=== PATIENT | female | born 1935 | race Caucasian/White ===

== ENCOUNTER → 2017-12-09 05:00 | Outpatient (REF) | payer MEDICARE, OTHER, SELFPAY ==
[2017-12-09 08:42] LABS: Absolute Lymphocyte Count 1.79 X10^3/ul (0.83-4.51); Absolute Neutrophil Count 2.7 X10^3/uL (2.0-7.7); Basophil# 0.06 X10^3/uL; Basophil% 1.1 % (0-1); Hematocrit 29.4 % (37-47); Hemoglobin 8.8 g/dl (12.0-15.0); Lymphocyte # 1.79 X10^3/ul (4.0); Lymphocyte % 31.4 % (19-41); Mean Corp Hgb Conc 29.9 g/gl (32-36); Mean Corpuscular Volume 76.8 fL (81-99); Mean Platelet Vol. 11.6 fl (6.2-12.0); Monocyte# 0.78 X10^3/uL; Monocyte% 13.7 % (0-10); Neutrophil # 2.66 X10^3/uL (2.7-7.7); Neutrophil % 46.6 % (47-70); Platelet Count 276 K/mm3 (150-450); RBC Distribution Width CV 15.7 % (11.6-14.6); RBC Distribution Width SD 42.8 fl (35.1-43.9); Red Blood Count 3.83 M/mm3 (4.2-5.4); White Blood Count 5.7 K/mm3 (4.4-11.0)
[2017-12-09 08:43] LABS: POSITIVE COUNT NO; POSITIVE DIFFERENTIAL NO; POSITIVE MORPHOLOGY NO
[2017-12-09 08:58] LABS: Iron 12 ug/dL (50-170); Iron Binding Capacity,Total 455 ug/dL (250-450); PERCENT IRON SATURATION 2.6 % (15.0-55.0); Thyroid Stim Hormone (TSH) 1.35 uIU/mL (0.358-3.74); Vitamin B12 802 pg/mL (211-911)
== END ==
DX: D64.9 Anemia, unspecified (principal); I10 Essential (primary) hypertension; E78.5 Hyperlipidemia, unspecified; E03.9 Hypothyroidism, unspecified; Z79.899 Other long term (current) drug therapy
CPT/HCPCS: 36415; 82607; 83540; 83550; 84443; 85025

== ENCOUNTER → 2017-12-13 10:40 | Outpatient (REF) | payer MEDICARE, OTHER, SELFPAY | DX: D64.9 Anemia, unspecified (principal) | CPT/HCPCS: 82274 ==

== ENCOUNTER 2017-12-23 09:53 | Inpatient (IN) | payer MEDICARE, OTHER, SELFPAY ==
[2017-12-23] VITALS (9 sets, daily range): BP systolic 107–128; BP diastolic 69–81; PULSE 94–101; RESP 16–20; TEMP 36.6–36.9; O2SAT 95–99; BMI 27.1; BMI 27.2; BMI 26.9
--- NOTE | 2017-12-23 10:24 | ED.VISSUMM ---
- ER Visit Summary Date of Service: 12/23/17 Chief Complaint: Bilateral lower extremity edema with shortness of breath History of Present Illness: The patient is a 82 F past medical history of anemia, hypertension, high cholesterol, restless leg, rheumatoid arthritis and prior DVTs. Currently she is on Coumadin. Reportedly no cardiac history. And no history of renal disease. Patient states for the last week she has had increasing swelling of both lower extremities is progressively gotten worse. She also is complaining of shortness of breath worse supine than upright. She denies any chest pain. She denies any prior history of any cardiac disease or dysrhythmia. She denies any chest pain. States that her primary care physician has been putting her on Lasix which is done nothing for the swelling. Physical Examination: Older female no acute distress. Vital signs are stable. Her pulse ox is 99% on room air. HEENT exam unremarkable. Neck nontender. No JVD. No lymphadenopathy. Lungs diminished in the bases but clear otherwise. Heart tachycardic rate of 101 no murmur appreciated. Abdomen is soft and nontender. Normal bowel sounds no peritoneal signs. She is moving all 4 extremities. Neurovascularly intact. She has 2+ pitting edema in both lower extremities that extends above her knees. It is equal and symmetrical. There are no cords. Neurologically she is awake and alert with no focal motor deficits. Back is nontender. Test Results: CBC showed a white count of 7. Hemoglobin of 9 her most recent another hemoglobin in the computer was 8.8 she runs a chronic anemia. Electrolytes showed a sodium of 129. Normal gap of 10. Normal creatinine. INR was 1.4 which is subtherapeutic she is reportedly on Coumadin. Her troponin level was normal. Her BNP was elevated at 1704. Chest x-ray showed cardiomegaly. Also prominent right paratracheal region. This will need further evaluation she will also likely need an echocardiogram. Emergency Department Course and Treatment: Patient's exam is consistent with bilateral pedal edema from CHF or another cause. She does seem to be somewhat tachycardic also. On repeat exam she is doing well. She has been given OxyIR for pain she has chronic pain issues. I discussed all test results with the patient and her family. The bilateral pedal edema may be from CHF versus other causes. I do not think is from any renal issues given that her BUN and creatinine are unremarkable.. I will speak to the hospitalist about admission. Treatment Plan: Admission Disposition: Admission Impression: Acute, new onset bilateral pedal edema CHF Cardiomegaly Prominent right paratracheal region on chest x-ray will need further evaluation Chronic anemia Hyponatremia This note was generated with [employer] dictation software. It may contain incorrect words, spelling, and punctuation that were not noted in review of the chart prior to signing ED Disposition - Plan for ED Patient: Chief Complaint: Edema Referrals: Town Doctor,Out of [NON-STAFF] -
--- NOTE | 2017-12-23 10:27 | NURSING ---
NO OLD EKGS
[2017-12-23] MEDS: oxyCODONE 5 MG Tablet PO ×2 (11:17→22:32)
[2017-12-23 11:23] LABS: Absolute Lymphocyte Count 0.75 X10^3/ul (0.83-4.51); Absolute Neutrophil Count 5.9 X10^3/uL (2.0-7.7); Basophil# 0.04 X10^3/uL; Basophil% 0.5 % (0-1); Differential Indicated SCAN CRITERIA MET; Eosinophil# 0.03 X10^3/uL; Eosinophils% 0.4 % (0-5); Hematocrit 30.1 % (37-47); Lymphocyte # 0.75 X10^3/ul (4.0); Lymphocyte % 10.1 % (19-41); Mean Corp Hgb Conc 29.9 g/gl (32-36); Mean Corpuscular Volume 73.6 fL (81-99); Mean Platelet Vol. 10.8 fl (6.2-12.0); Monocyte# 0.76 X10^3/uL; Monocyte% 10.2 % (0-10); Neutrophil # 5.87 X10^3/uL (2.7-7.7); Neutrophil % 78.7 % (47-70); POSITIVE COUNT NO; POSITIVE DIFFERENTIAL NO; POSITIVE MORPHOLOGY YES; Platelet Count 250 K/mm3 (150-450); RBC Distribution Width CV 15.4 % (11.6-14.6); RBC Distribution Width SD 41.3 fl (35.1-43.9); Red Blood Count 4.09 M/mm3 (4.2-5.4); White Blood Count 7.5 K/mm3 (4.4-11.0)
[2017-12-23 11:24] LABS: International Normalized Ratio 1.4; Prothrombin Time (Protime)PT. 16.9 SECONDS (11.7-14.9)
[2017-12-23 11:27] LABS: Anion Gap 10 (5-15); BUN 14 mg/dL (7-18); BUN/Creat Ratio 17.6 RATIO (10-20); Calcium,Total 8.9 mg/dL (8.5-10.1); Chloride 92 mmol/L (98-107); Creatinine, Serum 0.79 mg/dL (0.55-1.02); EST Glomerular Filtration Rate 73 mL/min (>60); Est Glom Filt Rate - Afr Amer 89 mL/min (>60); Estimated Creatinine Clearance 32.17 ml/min; Glucose 112 mg/dL (74-106); Potassium 4.1 mmol/L (3.5-5.1); Sodium Level 129 mmol/L (136-145)
[2017-12-23 11:37] LABS: Anisocytosis 2+; Hypochromasia 1+; Microcytosis 1+
[2017-12-23] MEDS: Ondansetron 4 MG/2 ML Vial IV (12:10)
[2017-12-23] MEDS: Morphine 4 MG/ML Syringe IV (12:10)
--- NOTE | 2017-12-23 13:14 | NURSING ---
PCU [facility] EDEMA, RT HILAR PROMINENCE, CHF, ANEMIA
--- NOTE | 2017-12-23 13:23 | PCM.HP.STD ---
<Bladimir Lucas - Last Filed: 12/23/17 13:47> Problem List (1) CHF (congestive heart failure) Status: Acute (2) HTN (hypertension) Status: Chronic (3) HLD (hyperlipidemia) Status: Chronic (4) Hypothyroid Status: Chronic (5) GERD (gastroesophageal reflux disease) Status: Chronic (6) Rheumatoid arthritis Status: Chronic History of Present Illness Date of Admission: 12/23/17 Chief Complaint: BLE edema The patient is a 82 year old F with a hx of htn DVT for which she is on warfarin, RA, HLD, GERD, hiatal hernia, hypothyroid who presents to the ER from Assisted Living with a chief complaint of BLE edema. She has had increased LE edema progressively for the past week. She also has developed some mild SOB, worse laying flat, as well, not requiring O2. She denies CP, pressure, heaviness, tightness, palpitations, dizziness, or LH. She has no cough, fevers or chills. She was placed on oral lasix with no improvement. She does not salt her food but her food is prepared for her and she does not know how much salt is in it. She denies a hx of CHF. In the ER workup included normal temp and WBC, mild hyponatremia, significantly elevated BNP, EKG with sinus tach, and CXR c/w chf. She had an echo with good EF in 2013. [] Past Medical History Past Medical History (Chronic Problems): Chronic Problems HTN (hypertension) (Chronic) HLD (hyperlipidemia) (Chronic) Hypothyroid (Chronic) GERD (gastroesophageal reflux disease) (Chronic) Rheumatoid arthritis (Chronic) Allergies meperidine HCl [From Demerol] Allergy (Verified 12/23/17 09:56) Anaphylaxis aspirin Adverse Reaction (Verified 12/23/17 09:57) Other Penicillins Adverse Reaction (Verified 12/23/17 09:56) Unknown Home Medications: Ambulatory Orders Medication Instructions Recorded Acetaminophen [Tylenol Arthritis] 650 mg PO Q8H PRN PRN 10/26/13 Calcium (Elemental) [Caltrate-600] 600 mg PO DAILY 10/26/13 Cholecalciferol (Vitamin D3) 2,000 unit PO DAILY 10/26/13 [Vitamin D] Epinephrine [Epi Pen] 0.3 mg IM X1 10/26/13 Etanercept [Enbrel] 25 mg SQ MOTH 10/26/13 Hydroxychloroquine [Plaquenil] 200 mg PO BID 10/26/13 Multivit-Min/FA/Lycopene/Lut 1 each PO DAILY 10/26/13 [Centrum Silver Tablet] Pregabalin [Lyrica] 100 mg PO 4X/DAY 10/26/13 Warfarin [Coumadin] 2 mg PO DAILY 10/26/13 Albuterol IH (ProAir) [Proair Hfa] 1 - 2 puff INHALATION Q4H PRN PRN 12/23/17 Biotin 5 mg PO DAILY 12/23/17 Duloxetine HCl [Duloxetine HCl] 60 mg PO DAILY 12/23/17 Folic Acid [Folic Acid] 1 mg PO DAILY 12/23/17 Furosemide [Lasix] 20 mg PO DAILY 12/23/17 Lansoprazole [Lansoprazole] 30 mg PO DAILY 12/23/17 Levothyroxine [Synthroid] 50 mcg PO MOTUWETHFR 12/23/17 Levothyroxine [Synthroid] 75 mcg PO SUSA 12/23/17 Naloxegol Oxalate [Movantik] 12.5 mg PO DAILY 12/23/17 Olmesartan Medoxomil [Benicar] 40 mg PO DAILY 12/23/17 Oxybutynin Chloride [Ditropan Xl] 5 mg PO DAILY 12/23/17 Oxycodone HCl/Acetaminophen 0.5 - 1 tab PO Q4H PRN PRN 12/23/17 [Oxycodone-Acetaminophen 10-325] Potassium Chloride [Klor-Con M20] 20 meq PO DAILY 12/23/17 Pravastatin Sodium [Pravastatin 10 mg PO QHS 12/23/17 Sodium] Psychiatric History: No pertinent psych hx 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 Denies: Chest Pain, Chest Pressure, Chest Tightness, Heaviness, Light Headedness, Palpitations, Syncope Respiratory: Reports: Shortness of Breath, Shortness of breath at rest, Shortness of breath upon exertion. Denies: Cough, Sputum production Gastrointestinal: Denies: Abdominal Pain, Nausea, Vomiting Genitourinary: Denies: Dysuria Musculoskeletal: Denies: Joint Pain, Joint Tenderness Skin: Denies: Rash, Wounds Neurological: Denies: Numbness, Tingling, Focal weakness Psychiatric: Denies: Anxiety, Depression, Homicidal Ideations, Suicidal Ideations Hematologic/ Lymphatic: Denies: Easy Bruising, Easy Bleeding VTE Information - Inpt Only VTE Present on Admission: No VTE Mechan Device Prophylaxis: None VTE Pharm Prophylaxis ordered?: Yes Patient Problems: Active and Suspected Problems CHF (congestive heart failure) (Acute) - Physical Exam General: Alert, Oriented x3, Cooperative HEENT: Atraumatic, PERRLA, EOMI, Normocephalic Neck: Supple, No JVD, Negative Carotid Bruits Lungs: Rales Cardiovascular: No murmurs, Tachycardic Abdomen: Bowel Sounds Present, Soft, Non Tender Extremities: Capillary Refill Less than 3 Seconds, Edema - 2+ pitting edema to knees BLE Skin: No rashes, No breakdown Musculoskeletal: No Tenderness to Palpation of Joints or Extremities Neurological: Cranial nerves II-XII grossly intact Psych/Mental Status: Normal Affect, Appropriate, Alert and oriented to time, place, person, mood and affect Vital Signs Temp Pulse Resp BP Pulse Ox 98 F 100 18 128/81 H 96 12/23/17 09:55 12/23/17 13:03 12/23/17 13:03 12/23/17 13:03 12/23/17 13:03 Oxygen Delivery Method Room Air Weight: 144 lb Body Mass Index (BMI) 27.1 Laboratory Tests Past 24 Hrs 12/23/17 12/23/17 12/23/17 11:00 11:00 11:00 WBC 7.5 RBC 4.09 L Hgb 9.0 L Hct 30.1 L MCV 73.6 L MCH 22.0 L MCHC 29.9 L RDW 15.4 H RDW Differential 41.3 Plt Count 250 MPV 10.8 Immature Gran % (Auto) 0.100 Neut % (Auto) 78.7 H Lymph % (Auto) 10.1 L [place] % (Auto) 10.2 H Eos % (Auto) 0.4 Baso % (Auto) 0.5 Absolute Neuts (auto) 5.9 Absolute Lymphs (auto) 0.75 L Total Counted Not Reportable Hypochromasia 1+ Anisocytosis 2+ Microcytosis 1+ PT 16.9 H INR 1.4 Sodium 129 L Potassium 4.1 Chloride 92 L Carbon Dioxide 27.0 Anion Gap 10 BUN 14 Creatinine 0.79 Estim Creat Clear Calc 32.17 Est GFR (MDRD) Af Amer 89 Est GFR (MDRD) Non-Af 73 BUN/Creatinine Ratio 17.6 Glucose 112 H Calcium 8.9 Troponin I 0.036 B-Natriuretic Peptide 12/23/17 11:00 WBC RBC Hgb Hct MCV MCH MCHC RDW RDW Differential Plt Count MPV Immature Gran % (Auto) Neut % (Auto) Lymph % (Auto) [place] % (Auto) Eos % (Auto) Baso % (Auto) Absolute Neuts (auto) Absolute Lymphs (auto) Total Counted Hypochromasia Anisocytosis Microcytosis PT INR Sodium Potassium Chloride Carbon Dioxide Anion Gap BUN Creatinine Estim Creat Clear Calc Est GFR (MDRD) Af Amer Est GFR (MDRD) Non-Af BUN/Creatinine Ratio Glucose Calcium Troponin I B-Natriuretic Peptide 1704.0 H Assessment/Plan All Active Problems CHF (congestive heart failure) (Acute) 1. Acute CHF type unspecified - no prior hx. Admit to pcu on tele. IV lasix. Rales on exam, significant edema. Add CUONG wraps, fluid/sodium restricted diet. home meds lists cuong and arb. on atenolol. Need to clarify home meds. Renal function stable. EKG sinus tachy. BNP 1700. CXR with cardiomegaly, prominent hilar region, adenopathy - follow up CT in ER. Last echo 2012 with preseved EF. Need new echo. Aerosols prn. Incentive spirometer. Trop neg - cycle. 2. HTN - stable. continue home meds 3. HLD - statin 4. GERD/Hiatal hernia - ppi 5. Hypothyroid - check tsh. Continue synthroid 6. Microcytic anemia - recent iron studies in emd. Start po iron. 7. Mild hyponatremia - probably hypervolemic. trend. 8. Hx DVT - INR subtherapeutic. Trend. Continue warfarin. 9. RA - contineu plaquenil, enbrel, cymbalta, lyrica DVT ppx: warfarin DC planning: ptot, likely will be able to return to [place] This patient was seen by Bladimir Lucas PA-C under the supervision of Doctor Macarena. <Mark Fiore F - Last Filed: 12/23/17 15:39> History of Present Illness The patient is a 82 year old F [] Past Medical History Allergies bee venom protein (honey bee) Allergy (Verified 12/23/17 15:00) Anaphylaxis meperidine HCl [From Demerol] Allergy (Verified 12/23/17 09:56) Anaphylaxis Penicillins Allergy (Verified 12/23/17 14:59) Unknown aspirin Adverse Reaction (Verified 12/23/17 14:59) bad headaches and ringing in my ears NSAIDS (Non-Steroidal Anti-Inflamma Adverse Reaction (Verified 12/23/17 15:00) nausea and I passed out - Physical Exam Vital Signs Temp Pulse Resp BP Pulse Ox 98.3 F 95 20 H 121/74 H 95 12/23/17 14:55 12/23/17 14:55 12/23/17 14:55 12/23/17 14:55 12/23/17 14:55 Oxygen Delivery Method Room Air Weight: 142 lb 12.8 oz Body Mass Index (BMI) 26.9 Laboratory Tests Past 24 Hrs 12/23/17 14:30 Troponin I Pending Assessment/Plan Addendum: Dr. Fiore I personally examined the patient and reviewed the chart. I agree with the above. 82 yo F who lives in assisted living presenting with a few days of increase SOB and leg swelling. No fevers, chills, or chest pain. She denies eating anything very salty recently. She had an echo in 2012 that was normal EF with grade 1 diastolic dysfunction. She is also anemic and she was being seen as an outpatient but did have any therapy initiated yet General: Alert, Oriented x3, Cooperative HEENT: Atraumatic, PERRLA, EOMI, Normocephalic Neck: Supple, No JVD, Lungs: Rales in the bases, no wheezes and good air movement Cardiovascular: No murmurs, Tachycardic Abdomen: Bowel Sounds Present, Soft, Non Tender Extremities: Capillary Refill Less than 3 Seconds, Edema - 1+ pitting edema to knees BLE Skin: No rashes, No breakdown Musculoskeletal: No Tenderness to Palpation of Joints or Extremities Psych/Mental Status: Normal Affect, Appropriate, Alert and oriented to time, place, person, mood and affect 1. SOB/Edema/Iron deficiency anemia/HTN/HLD/H/o dvt - Fluid restrict to 1500 cc daily - Start with lasix IV - Echo pending - Start with iron replacement and vit C b/o her PPI - Continue with her home medications for her HTN/HLD - c.w coumadin and check daily INR - Lovenox SC until coumadin is therapeutic Code Visit Inpatient E&M: 97054 Init Hosp L3
--- NOTE | 2017-12-23 14:24 | CASEMGMT ---
Patient is from [facility]. SW will follow for d/c planning. Cheri GRANDA MSW
[2017-12-23 14:52] LABS: Ferritin 14 ng/mL (8-252); Iron 13 ug/dL (50-170); Iron Binding Capacity,Total 500 ug/dL (250-450); Magnesium 2.1 mg/dL (1.6-2.6); PERCENT IRON SATURATION 2.6 % (15.0-55.0); Thyroid Stim Hormone (TSH) 1.83 uIU/mL (0.358-3.74)
[2017-12-23] MEDS: Pravastatin 20 MG Tablet 10 MG PO (22:32)
[2017-12-23] MEDS: Hydroxychloroquine 200 MG Tablet PO (22:33)
[2017-12-23] MEDS: Pregabalin 50 MG Capsule PO (22:37)
--- NOTE | 2017-12-23 23:52 | NURSING ---
Pts home 75 mcg fentanyl patch removed and wasted in toilet. Witness with Tammi Roach RN
[2017-12-24] VITALS (13 sets, daily range): BP systolic 108–125; BP diastolic 57–81; PULSE 81–96; RESP 14–18; TEMP 36.6–36.9; O2SAT 93–96
[2017-12-24] MEDS: Levothyroxine 50 MCG Tablet PO (05:54)
[2017-12-24] MEDS: oxyCODONE 5 MG Tablet PO ×2 (05:56→11:07)
[2017-12-24 06:09] LABS: International Normalized Ratio 1.3; Prothrombin Time (Protime)PT. 16.4 SECONDS (11.7-14.9)
[2017-12-24 06:27] LABS: Anion Gap 8 (5-15); BUN 12 mg/dL (7-18); BUN/Creat Ratio 18.5 RATIO (10-20); Calcium,Total 8.8 mg/dL (8.5-10.1); Chloride 96 mmol/L (98-107); Cholesterol 86 mg/dL (200); Creatinine, Serum 0.65 mg/dL (0.55-1.02); EST Glomerular Filtration Rate 93 mL/min (>60); Est Glom Filt Rate - Afr Amer 112 mL/min (>60); Estimated Creatinine Clearance 32.17 ml/min; Glucose 84 mg/dL (74-106); High Density Lipoprotein 56 mg/dL; Potassium 4.3 mmol/L (3.5-5.1); Sodium Level 128 mmol/L (136-145); Triglycerides 65 mg/dL; Very Low Density Lipoprotein 13 mg/dL (5-40)
[2017-12-24 06:38] LABS: Absolute Lymphocyte Count 2.24 X10^3/ul (0.83-4.51); Absolute Neutrophil Count 3.6 X10^3/uL (2.0-7.7); Basophil% 1.3 % (0-1); Eosinophil# 0.31 X10^3/uL; Eosinophils% 4.1 % (0-5); Hematocrit 29.8 % (37-47); Hemoglobin 8.9 g/dl (12.0-15.0); Lymphocyte # 2.24 X10^3/ul (4.0); Lymphocyte % 29.7 % (19-41); Mean Corp Hgb Conc 29.9 g/gl (32-36); Mean Corpuscular Hgb 22.1 pg (27.0-32.0); Mean Corpuscular Volume 74.1 fL (81-99); Mean Platelet Vol. 11.1 fl (6.2-12.0); Monocyte# 1.23 X10^3/uL; Monocyte% 16.3 % (0-10); Neutrophil # 3.64 X10^3/uL (2.7-7.7); Neutrophil % 48.5 % (47-70); Platelet Count 251 K/mm3 (150-450); RBC Distribution Width CV 15.3 % (11.6-14.6); RBC Distribution Width SD 41.3 fl (35.1-43.9); Red Blood Count 4.02 M/mm3 (4.2-5.4); White Blood Count 7.5 K/mm3 (4.4-11.0)
[2017-12-24 06:39] LABS: Differential Indicated SCAN CRITERIA MET; POSITIVE COUNT NO; POSITIVE DIFFERENTIAL NO; POSITIVE MORPHOLOGY YES
[2017-12-24] MEDS: Aspirin 81 MG TAB.CHEW PO (07:04)
[2017-12-24] MEDS: Clopidogrel Bisulfate 300 MG Tablet PO (07:04)
[2017-12-24 07:06] LABS: Anisocytosis 1+; Differential Comment SCAN; Hypochromasia 1+; Microcytosis 1+; Polychromasia 1+
[2017-12-24] MEDS: Hydroxychloroquine 200 MG Tablet PO ×2 (09:06→20:48)
[2017-12-24] MEDS: Metoprolol(XL)Succ 25 MG Tablet PO (09:06)
[2017-12-24] MEDS: DULoxetine Hcl 60 MG Capsule PO (09:06)
[2017-12-24] MEDS: Tolterodine Tartrate 2 MG CAP.SA PO (09:06)
[2017-12-24] MEDS: Folic Acid 1 MG Tablet PO (09:06)
[2017-12-24] MEDS: Pantoprazole Sodium 40 MG Tablet PO (09:06)
[2017-12-24] MEDS: Pregabalin 50 MG Capsule PO ×2 (09:06→13:22)
[2017-12-24] MEDS: Losartan Potassium 100 MG Tablet PO (09:07)
[2017-12-24] MEDS: Furosemide 40 MG/4 ML Vial IV (09:07)
[2017-12-24] MEDS: 0.9% NaCl Peripheral Flush Adult/Peds IV ×2 (09:07→14:55)
--- NOTE | 2017-12-24 13:13 | PCM.CONS.C ---
Problem List (1) HTN (hypertension) Status: Chronic (2) HLD (hyperlipidemia) Status: Chronic (3) CHF (congestive heart failure) Status: Acute Reason for Consult Date of Consultation: 12/24/17 Reason for Consultation: Newly discovered CHF, hypertension, hypercholesterolemia History of Present Illness: The patient is a 82 year old F with a history of DVT on Coumadin therapy, rheumatoid arthritis, hypertension, GERD, who lives in a correction facility, admitted yesterday for dyspnea on exertion, shortness of breath, worsening lower extremity edema. She denies any chest pain, angina, denies any previous catheterization. Patient was found to have significant biventricular failure, and has difficulty laying down flat due to a combination of back pain which was treated with a implantation of a spinal stimulator but subsequently caused urinary and bowel incontinence. Patient also complains of right lower quadrant abdominal tenderness, and has difficulty laying down flat due to right lower quadrant pain. Patient underwent a 2D echo with Doppler to workup her lower extremity edema and shortness of breath and was found to have severe global LV dysfunction with an EF around 10-15%, markedly diminished since her last echocardiogram in 2012. That time her EF was found to be normal. In addition, her RVSP increased from 25-54 mmHg consistent with at least moderate pulmonary hypertension. The patient was going to undergo a left heart catheterization this morning but due to CHF and abdominal pain she is unable to lay down flat. The patient was ordered a CT of the abdomen and pelvis with results are still pending. She was given IV diuresis and is slowly improving.] Past Medical History Allergies/Adverse Reactions: Allergies bee venom protein (honey bee) Allergy (Verified 12/23/17 15:00) Anaphylaxis meperidine HCl [From Demerol] Allergy (Verified 12/23/17 09:56) Anaphylaxis Penicillins Allergy (Verified 12/23/17 14:59) Unknown aspirin Adverse Reaction (Verified 12/23/17 14:59) bad headaches and ringing in my ears NSAIDS (Non-Steroidal Anti-Inflamma Adverse Reaction (Verified 12/23/17 15:00) nausea and I passed out Home Medications: Ambulatory Orders Medication Instructions Recorded Acetaminophen [Tylenol Arthritis] 650 mg PO Q8H PRN PRN 10/26/13 Calcium (Elemental) [Caltrate-600] 600 mg PO DAILY 10/26/13 Cholecalciferol (Vitamin D3) 2,000 unit PO DAILY 10/26/13 [Vitamin D] Epinephrine [Epi Pen] 0.3 mg IM X1 10/26/13 Etanercept [Enbrel] 25 mg SQ TUSA 10/26/13 Hydroxychloroquine [Plaquenil] 200 mg PO BID 10/26/13 Multivit-Min/FA/Lycopene/Lut 1 each PO DAILY 10/26/13 [Centrum Silver Tablet] Pregabalin [Lyrica] 100 mg PO 4X/DAY 10/26/13 Warfarin [Coumadin] 2 mg PO DAILY 10/26/13 Albuterol IH (ProAir) [Proair Hfa] 1 - 2 puff INHALATION Q4H PRN PRN 12/23/17 Biotin 5 mg PO DAILY 12/23/17 Duloxetine HCl [Duloxetine HCl] 60 mg PO DAILY 12/23/17 Fentanyl [Fentanyl] 75 mcg TRANSDERM. Q72H 12/23/17 Folic Acid [Folic Acid] 1 mg PO DAILY 12/23/17 Furosemide [Lasix] 20 mg PO DAILY 12/23/17 Lansoprazole [Lansoprazole] 30 mg PO DAILY 12/23/17 Levothyroxine [Synthroid] 50 mcg PO MOTUWETHFR 12/23/17 Levothyroxine [Synthroid] 75 mcg PO SUSA 12/23/17 Naloxegol Oxalate [Movantik] 12.5 mg PO DAILY 12/23/17 Olmesartan Medoxomil [Benicar] 40 mg PO DAILY 12/23/17 Oxybutynin Chloride [Ditropan Xl] 5 mg PO DAILY 12/23/17 Oxycodone HCl/Acetaminophen 0.5 - 1 tab PO Q4H PRN PRN 12/23/17 [Oxycodone-Acetaminophen 10-325] Potassium Chloride [Klor-Con M20] 20 meq PO DAILY 12/23/17 Pravastatin Sodium [Pravastatin 10 mg PO QHS 12/23/17 Sodium] Past Medical History (Chronic Problems): Chronic Problems HTN (hypertension) (Chronic) HLD (hyperlipidemia) (Chronic) Hypothyroid (Chronic) GERD (gastroesophageal reflux disease) (Chronic) Rheumatoid arthritis (Chronic) Psychiatric History: No pertinent psych hx 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 Denies: Chest Discomfort, Palpitations, Lightheadedness, Dizziness, Near Syncope, Syncope Respiratory: Denies: Cough, Sputum Production, Hemoptysis Gastrointestinal: Denies: Hematemesis, Hematochezia, Melena Genitourinary: Denies: Dysuria, Hematuria Skin: Denies: Rash Subjectve: Patient laying in bed at a 45? angle, no acute distress. Objective: Vital Signs Temp Pulse Resp BP Pulse Ox 98.4 F 96 16 125/81 H 95 12/24/17 08:30 12/24/17 11:02 12/24/17 08:30 12/24/17 08:30 12/24/17 08:30 Oxygen Delivery Method Room Air Weight: 142 lb 3.17 oz Body Mass Index (BMI) 26.9 Intake and Output for Last 24 Hours 12/22/17 12/23/17 12/24/17 23:59 23:59 23:59 Intake Total 240 / 240 Output Total 575 / 575 200 / 200 Balance -335 / -335 -200 / -200 General: Awake, Alert, Oriented x 3 HEENT: PERRL, EOMI, Sclera Non Icteric Neck: Supple, Good ROM, No Lymph Node Enlargement Lungs: Rales - Marek Bases Cardiovascular: Regular Rhythm, Normal S1, Normal S2, No Rubs, No Gallops, Positive S4 Murmur Murmur: Grade 2/6, Holosystolic Vascular: No Carotid Bruits, Normal Femoral Pulses, Normal Radial Pulses, Normal Dorsalis Pedal Pulse, Normal Posterior Tibial Pulses Abdomen: Bowel Sounds Present, Soft, Non Tender, No HSM, No Organomegaly Extremities: No Cyanosis, No Clubbing, No edema Neurological: No Focal Motor or Sensory Deficit 12/23/17 14:30: Troponin I 0.054 H 12/23/17 17:25: Troponin I 0.051 H 12/24/17 05:26: WBC 7.5, RBC 4.02 L, Hgb 8.9 L, Hct 29.8 L, MCV 74.1 L, MCH 22.1 L, MCHC 29.9 L, RDW 15.3 H, RDW Differential 41.3, Plt Count 251, MPV 11.1, Immature Gran % (Auto) 0.100, Neut % (Auto) 48.5, Lymph % (Auto) 29.7, [place] % (Auto) 16.3 H, Eos % (Auto) 4.1, Baso % (Auto) 1.3 H, Absolute Neuts (auto) 3.6, Total Counted Not Reportable 12/24/17 05:26: Sodium 128 L, Potassium 4.3, Chloride 96 L, Carbon Dioxide 24.0, Anion Gap 8, BUN 12, Creatinine 0.65, Est GFR (MDRD) Af Amer 112, Est GFR (MDRD) Non-Af 93, BUN/Creatinine Ratio 18.5, Glucose 84, Calcium 8.8, Triglycerides 65, Cholesterol 86, LDL Cholesterol 17, VLDL Cholesterol 13, HDL Cholesterol 56 12/24/17 05:26: PT 16.4 H, INR 1.3 Rhythm: EKG: Normal sinus rhythm with left anterior hemiblock, possible old anteroseptal wall myocardial infarction ECHO: Severe LV dysfunction with an EF of 10-15%, RVSP of 54 mmHg, mild to moderate mitral regurgitation, moderate to severe TR. Stress Test: Cardiac Cath: Pending PCI: CT Surgery: Holter monitor: EPS: PPM: CXR: Chest CT Scan: Assessment/Plan 1. Biventricular failure: The patient presents with progressively worsening biventricular failure, newly discovered severe LV dysfunction, moderate to severe tricuspid regurgitation, and at least moderate pulmonary hypertension with an RVSP of estimated to be 54 mmHg, superimposed upon severe bilateral lower extremity edema. At this point I would recommend IV diuresis with a Bumex drip at 0.5 mg/h, bilateral lower extremity Robel bandage wraps, and proceeding with left heart catheterization tomorrow morning to define her coronary anatomy. Patient will need to be able to lay down at least 30?, as we can support her with a wedge in the [employer]. Would not pursue right heart catheterization at this time given her history of DVT. Her INR is subtherapeutic at 1.3 and would recommend holding Coumadin. DC IV Lasix. In addition would recommend starting afterload reducing agents with Cozaar 100 mg p.o. daily, holding her beta-pedro until she is euvolemic, then starting Coreg 3.125 mg p.o. twice daily. Recommend a 1500 cc fluid restriction, and Robel bandages to her bilateral lower extremities to facilitate venous return. Her TSH is normal, so it is unlikely that she has hypothyroid induced LV dysfunction. Assuming she can lay down she will undergo a left her catheterization tomorrow morning. If the patient has no significant coronary disease she will be deemed as a idiopathic cardiomyopathy. We will repeat her echocardiogram in 3 months time after medical management and cardiac rehab if possible, and if her LV function is still not optimized she may require a prophylactic AICD versus ongoing medical therapy. Recommend keeping her potassium above 4.0 and her magnesium of 2.0. 2. Thank you very much for the opportunity to put dissipate in the cardiac care of your patient. Consultation time took place between 8 AM and 8:30 AM. Code Visit Inpatient E&M: 71170 Init Hosp L2
[2017-12-24] MEDS: Enoxaparin 40 MG/0.4 ML Syringe SC (14:09)
[2017-12-24] MEDS: HYDROcodone Bitartrate/Apap 5/325 Tablet PO ×2 (14:51→20:48)
[2017-12-24] MEDS: Bumetanide 25 MG in CONTAINER,EMPTY 1 BAG CONT INF (14:51)
[2017-12-24] MEDS: Gabapentin 100 MG Capsule 200 MG PO (16:29)
--- NOTE | 2017-12-24 17:28 | PCM.PN.HOSP ---
Patient Problems: Active and Suspected Problems CHF (congestive heart failure) (Acute) Subjective: f/u fo0r CHF exacerbation patient seen and examined Complains of right hip, back and leg pain which is chronic Vitals/I&O's: Vital Signs Temp Pulse Resp BP Pulse Ox 98.2 F 82 16 108/58 L 96 12/24/17 14:15 12/24/17 14:59 12/24/17 14:15 12/24/17 14:15 12/24/17 14:15 Oxygen Delivery Method Room Air Weight: 64.5 kg Body Mass Index (BMI) 26.9 Intake and Output for Last 24 Hours 12/22/17 12/23/17 12/24/17 23:59 23:59 23:59 Intake Total 240 / 240 609 / 609 Output Total 575 / 575 650 / 650 Balance -335 / -335 -41 / -41 General: Alert, Oriented x3, Cooperative, - - in painful distress Neck: JVD, Right Lungs: Rales, - - bilateral coarse crackles id and lower zones bilaterally Cardiovascular: Regular rate, Normal S1, Normal S2 Abdomen: Bowel Sounds Present, Soft, Non Tender, Non-Distended Extremities: Edema - 2 + edema Neurological: Cranial nerves II-XII grossly intact Psych/Mental Status: Normal Affect, Appropriate Laboratory Results 12/23/17 17:25: Troponin I 0.051 H 12/24/17 05:26: WBC 7.5, RBC 4.02 L, Hgb 8.9 L, Hct 29.8 L, MCV 74.1 L, MCH 22.1 L, MCHC 29.9 L, RDW 15.3 H, RDW Differential 41.3, Plt Count 251, MPV 11.1, Immature Gran % (Auto) 0.100, Neut % (Auto) 48.5, Lymph % (Auto) 29.7, [place] % (Auto) 16.3 H, Eos % (Auto) 4.1, Baso % (Auto) 1.3 H, Absolute Neuts (auto) 3.6, Absolute Lymphs (auto) 2.24, Total Counted Not Reportable, Differential Comment SCAN, Polychromasia 1+, Hypochromasia 1+, Anisocytosis 1+, Microcytosis 1+ 12/24/17 05:26: Sodium 128 L, Potassium 4.3, Chloride 96 L, Carbon Dioxide 24.0, Anion Gap 8, BUN 12, Creatinine 0.65, Estim Creat Clear Calc 32.17, Est GFR (MDRD) Af Amer 112, Est GFR (MDRD) Non-Af 93, BUN/Creatinine Ratio 18.5, Glucose 84, Calcium 8.8, Triglycerides 65, Cholesterol 86, LDL Cholesterol 17, VLDL Cholesterol 13, HDL Cholesterol 56 12/24/17 05:26: PT 16.4 H, INR 1.3 Current Medications Hydrocodone Bitart/Acetaminophen ([place] 5mg-325mg) 2 tablet PO Q6H [facility] Last Admin: 12/24/17 14:51 Dose: 2 tablet Albuterol Sulfate (Ventolin Aerosols) 2.5 mg INHALATION Q4H PRN PRN Reason: SOB &/OR WHEEZING Diphenhydramine HCl (Benadryl) 50 mg PO X1 ONE Stop: 12/25/17 07:01 Duloxetine HCl (Cymbalta) 60 mg PO DAILY [facility] Last Admin: 12/24/17 09:06 Dose: 60 mg Enoxaparin Sodium (Lovenox) 40 mg SC DAILY@1000 [facility] Last Admin: 12/24/17 14:09 Dose: 40 mg Etanercept (Enbrel) 25 mg SQ TuSa@1000 [facility] Fentanyl (Duragesic Patch) 75 mcg TRANSDERM. Q72H [facility] Last Admin: 12/23/17 23:41 Dose: 75 mcg Folic Acid (Folic Acid) 1 mg PO DAILYCM [facility] Last Admin: 12/24/17 09:06 Dose: 1 mg Gabapentin (Neurontin) 200 mg PO TIDCM [facility] Last Admin: 12/24/17 16:29 Dose: 200 mg Hydroxychloroquine Sulfate (Plaquenil) 200 mg PO BID [facility] Last Admin: 12/24/17 09:06 Dose: 200 mg Sodium Chloride () 250 mls @ 15 mls/hr IV .[id number] PRN PRN Reason: SALINE FLUSH Iron Sucrose 300 mg/ Sodium (Chloride) 265 mls @ 177 mls/hr IV DAILY [facility] Last Admin: 12/24/17 11:07 Dose: 177 mls/hr Sodium Chloride () 1,000 mls @ 15 mls/hr IV .Q48H [facility] PRN Reason: KVO Bumetanide 25 mg/ (Miscellaneous Information) 100 mls @ 2 mls/hr CONT INF .Q50H [facility] PRN Reason: 0.5 MG/HR Last Admin: 12/24/17 14:51 Dose: 2 mls/hr Levothyroxine Sodium (Synthroid) 50 mcg PO MoTuWeThFr@0600 [facility] Last Admin: 12/24/17 05:54 Dose: 50 mcg Levothyroxine Sodium (Synthroid) 75 mcg PO SuSa@0600 [facility] Losartan Potassium (Cozaar) 100 mg PO DAILY [facility] Last Admin: 12/24/17 09:07 Dose: 100 mg Magnesium Hydroxide (Milk Of Magnesia) 30 ml PO DAILY PRN PRN Reason: Constipation Non-Formulary Medication (Naloxegol Oxalate [Movantik]) 12.5 mg PO DAILY [facility] Ondansetron HCl (Zofran) 4 mg IV Q8H PRN PRN PRN Reason: Nausea Pantoprazole Sodium (Protonix) 40 mg PO DAILY [facility] Last Admin: 12/24/17 09:06 Dose: 40 mg Potassium Chloride (K-Dur) [facility] Pravastatin Sodium (Pravachol) 10 mg PO QHS [facility] Last Admin: 12/23/17 22:32 Dose: 10 mg Sodium Chloride () 5 - 30 ml IV UD PRN PRN Reason: SALINE FLUSH Last Admin: 12/24/17 14:55 Dose: 10 ml Tolterodine Tartrate (Detrol La) 2 mg PO DAILY [facility] Last Admin: 12/24/17 09:06 Dose: 2 mg Medical Necessity - Tobacco Use Smoking Status: Never smoker Assessment/Plan All Active Problems CHF (congestive heart failure) (Acute) 1. Acute on chronic CHF. EF was normal just a few years ago. Suspect ischemic heart disease and patient appears to b e planned for a left heart cath. I think a right heart cath would be informative as well 2. HTN - stable. Continue home meds 3. HLD - statin 4. GERD/Hiatal hernia - ppi 5. Hypothyroid - check tsh. Continue synthroid 6. Microcytic anemia/Iron deficiency anemia. Will start Venofer IV x 3. Has had EGD and colonoscopy [facility] in the last 1 year and negative for pathology. Suspect reduced absorption. Will screen for celiac sprue 7. Mild hyponatremia - probably hypervolemic. Will monitor 8. Hx DVT - INR subtherapeutic. Trend. Continue warfarin. 9. RA - continue Plaquenil, Enbrel, Cymbalta, Lyrica Code Visit Inpatient E&M: 71643 Subs Hosp L3
[2017-12-24] MEDS: Pravastatin 20 MG Tablet 10 MG PO (20:48)
[2017-12-25] VITALS (19 sets, daily range): BP systolic 107–128; BP diastolic 53–71; PULSE 51–99; RESP 14–16; TEMP 36.3–36.8; O2SAT 94–98
[2017-12-25 00:07] LABS: Bacteria 0 SEEN /hpf (None Seen); Mucous, Urine 0 SEEN /hpf (<or=2+); Red Blood Cells-Urine 0 SEEN /hpf (0-5); Squamous Epithelial Cells - UA 0 SEEN /hpf (5-10); White Blood Cells 0 SEEN /hpf (0-5)
[2017-12-25 00:18] LABS: Color, Urine Straw (Yellow); Glucose, Dipstick Normal (Normal); Ketone-Dipstick Negative (Negative); Leukocyte Esterase-Dipstick Negative /ul (Negative); Nitrite-Dipstick Negative (Negative); Occult Blood-Urine Negative /ul (Negative); Protein-Dipstick Negative (Negative); Urine Bilirubin Dipstick Negative (Negative); Urine Clarity Clear (Clear); Urine Urobilinogen Normal (Normal); Urine pH 6.5 (5.0 - 8.0)
[2017-12-25] MEDS: HYDROcodone Bitartrate/Apap 5/325 Tablet PO ×4 (02:56→20:15)
[2017-12-25 05:19] LABS: Absolute Lymphocyte Count 1.31 X10^3/ul (0.83-4.51); Absolute Neutrophil Count 3.1 X10^3/uL (2.0-7.7); Basophil# 0.13 X10^3/uL; Basophil% 2.2 % (0-1); Eosinophil# 0.43 X10^3/uL; Eosinophils% 7.2 % (0-5); Hematocrit 29.3 % (37-47); Hemoglobin 8.8 g/dl (12.0-15.0); Lymphocyte # 1.31 X10^3/ul (4.0); Lymphocyte % 21.8 % (19-41); Mean Corpuscular Hgb 22.2 pg (27.0-32.0); Mean Platelet Vol. 11.5 fl (6.2-12.0); Monocyte# 0.99 X10^3/uL; Monocyte% 16.5 % (0-10); Neutrophil # 3.14 X10^3/uL (2.7-7.7); Neutrophil % 52.1 % (47-70); Platelet Count 257 K/mm3 (150-450); RBC Distribution Width CV 15.7 % (11.6-14.6); RBC Distribution Width SD 40.9 fl (35.1-43.9); Red Blood Count 3.96 M/mm3 (4.2-5.4)
[2017-12-25 05:21] LABS: Differential Indicated SCAN CRITERIA MET; POSITIVE COUNT NO; POSITIVE DIFFERENTIAL NO; POSITIVE MORPHOLOGY YES
[2017-12-25 05:22] LABS: International Normalized Ratio 1.3; Prothrombin Time (Protime)PT. 16.3 SECONDS (11.7-14.9)
[2017-12-25 05:23] LABS: Partial Thromboplast Time 39.8 Seconds (24.1-36.2)
[2017-12-25 05:24] LABS: Anion Gap 10 (5-15); BUN 10 mg/dL (7-18); BUN/Creat Ratio 14.3 RATIO (10-20); Calcium,Total 8.3 mg/dL (8.5-10.1); Chloride 94 mmol/L (98-107); EST Glomerular Filtration Rate 85 mL/min (>60); Est Glom Filt Rate - Afr Amer 103 mL/min (>60); Estimated Creatinine Clearance 32.17 ml/min; Glucose 88 mg/dL (74-106); Potassium 3.2 mmol/L (3.5-5.1); Sodium Level 138 mmol/L (136-145)
[2017-12-25 06:51] LABS: Anisocytosis 1+; Differential Comment SCAN; Hypochromasia 1+; Microcytosis 1+; Polychromasia 1+
[2017-12-25] MEDS: Levothyroxine 50 MCG Tablet PO (07:37)
[2017-12-25] MEDS: Clopidogrel Bisulfate 75 MG Tablet PO (07:38)
[2017-12-25] MEDS: 0.9% Normal Saline 1,000 ML 15 ML IV (07:51)
[2017-12-25] MEDS: Aspirin 81 MG TAB.CHEW PO (07:51)
[2017-12-25] MEDS: Losartan Potassium 100 MG Tablet PO (07:52)
[2017-12-25] MEDS: Gabapentin 100 MG Capsule 200 MG PO ×3 (07:52→16:44)
[2017-12-25] MEDS: Folic Acid 1 MG Tablet PO (07:54)
[2017-12-25] MEDS: Tolterodine Tartrate 2 MG CAP.SA PO (09:23)
[2017-12-25] MEDS: DULoxetine Hcl 60 MG Capsule PO (09:23)
[2017-12-25] MEDS: Pantoprazole Sodium 40 MG Tablet PO (09:24)
[2017-12-25] MEDS: 0.9% NaCl Peripheral Flush Adult/Peds IV (10:42)
[2017-12-25] MEDS: DiphenhydrAMINE 25 MG Capsule 50 MG PO (11:10)
[2017-12-25] MEDS: Hydroxychloroquine 200 MG Tablet PO ×2 (12:33→21:47)
--- NOTE | 2017-12-25 13:39 | CASEMGMT ---
JAIME met with patient and her daughter. Staff from [facility] was also in the room visiting. Patient likely not ready for d/c today. Family said they would transport patient when ready. [facility] staff present is aware patient may come back over the weekend. JAIME will continue to follow to make sure patient is okay for d/c to [facility]. Plan: At this time the plan is back to [facility]ATT[facility]. Cheri GRANDA MSW
--- NOTE | 2017-12-25 13:56 | CASEMGMT ---
JAIME faxed updates to John. Cheri GRANDA CONTENT EDITOR
--- NOTE | 2017-12-25 14:10 | PCM.PN.HOSP ---
Patient Problems: Active and Suspected Problems CHF (congestive heart failure) (Acute) Subjective: F/u for acute CHF Patient seen and examined States breathing is better and pain in legs better as wel Vitals/I&O's: Vital Signs Temp Pulse Resp BP Pulse Ox 98.1 F 54 L 16 122/71 H 94 12/25/17 13:39 12/25/17 13:39 12/25/17 13:39 12/25/17 13:39 12/25/17 13:39 Oxygen Flow Rate (L/min) 2 Oxygen Delivery Method Room Air Weight: 61.5 kg Body Mass Index (BMI) 26.9 Intake and Output for Last 24 Hours 12/23/17 12/24/17 12/25/17 23:59 23:59 23:59 Intake Total 240 / 240 1783.3 / 1783.3 435 / 435 Output Total 575 / 575 1800 / 1800 300 / 300 Balance -335 / -335 -16.7 / -16.7 135 / 135 General: Alert, Oriented x3, Cooperative, - - less painful distress compared to yesterday HEENT: Atraumatic Oral: Moist Mucosa Neck: Supple, JVD, Right Lungs: - - less labored Abdomen: - - protruberant but MWR Extremities: Edema, - - CUONG wraps present still Skin: Skin Tear Neurological: Neuro grossly intact Psych/Mental Status: Normal Affect, Appropriate Microbiology Past 72 Hours 12/24/17 19:01 Stool Stool Occult Blood (ANEL) - Final Laboratory Results 12/24/17 23:55: Urine Color Straw, Urine Clarity Clear, Urine pH 6.5, Ur Specific [place] 1.010, Urine Protein Negative, Urine Glucose (UA) Normal, Urine Ketones Negative, Urine Occult Blood Negative, Urine Nitrite Negative, Urine Bilirubin Negative, Urine Urobilinogen Normal, Ur Leukocyte Esterase Negative, Urine RBC 0 SEEN, Urine WBC 0 SEEN, Ur Squamous Epith Cells 0 SEEN, Urine Bacteria 0 SEEN, Urine Mucus 0 SEEN 12/25/17 04:35: WBC 6.0, RBC 3.96 L, Hgb 8.8 L, Hct 29.3 L, MCV 74.0 L, MCH 22.2 L, MCHC 30.0 L, RDW 15.7 H, RDW Differential 40.9, Plt Count 257, MPV 11.5, Immature Gran % (Auto) 0.200, Neut % (Auto) 52.1, Lymph % (Auto) 21.8, [place] % (Auto) 16.5 H, Eos % (Auto) 7.2 H, Baso % (Auto) 2.2 H, Absolute Neuts (auto) 3.1, Absolute Lymphs (auto) 1.31, Total Counted Not Reportable, Differential Comment SCAN, Polychromasia 1+, Hypochromasia 1+, Anisocytosis 1+, Microcytosis 1+ 12/25/17 04:35: PT 16.3 H, INR 1.3, APTT 39.8 H 12/25/17 04:35: Sodium 138, Potassium 3.2 L, Chloride 94 L, Carbon Dioxide 34.0 H, Anion Gap 10, BUN 10, Creatinine 0.70, Estim Creat Clear Calc 32.17, Est GFR (MDRD) Af Amer 103, Est GFR (MDRD) Non-Af 85, BUN/Creatinine Ratio 14.3, Glucose 88, Calcium 8.3 L Current Medications Hydrocodone Bitart/Acetaminophen ([place] 5mg-325mg) 2 tablet PO Q6H [facility] Last Admin: 12/25/17 07:56 Dose: 2 tablet Albuterol Sulfate (Ventolin Aerosols) 2.5 mg INHALATION Q4H PRN PRN Reason: SOB &/OR WHEEZING Carvedilol (Coreg) 3.125 mg PO BID [facility] Duloxetine HCl (Cymbalta) 60 mg PO DAILY [facility] Last Admin: 12/25/17 09:23 Dose: 60 mg Etanercept (Enbrel) 25 mg SQ TuSa@1000 [facility] Fentanyl (Duragesic Patch) 75 mcg TRANSDERM. Q72H [facility] Last Admin: 12/23/17 23:41 Dose: 75 mcg Folic Acid (Folic Acid) 1 mg PO DAILYCM [facility] Last Admin: 12/25/17 07:54 Dose: 1 mg Furosemide (Lasix) 40 mg PO BID@1000,1800 [facility] Gabapentin (Neurontin) 200 mg PO TIDCM [facility] Last Admin: 12/25/17 12:34 Dose: 200 mg Heparin Sodium (Beef Lung) (Heparin 500 Unit/5 Ml (100/Ml)) 500 unit IV UD PRN PRN Reason: HEPARIN FLUSH Hydroxychloroquine Sulfate (Plaquenil) 200 mg PO BID [facility] Last Admin: 12/25/17 12:33 Dose: 200 mg Iron Sucrose 300 mg/ Sodium (Chloride) 265 mls @ 177 mls/hr IV DAILY [facility] Last Admin: 12/25/17 13:45 Dose: 177 mls/hr Sodium Chloride () 1,000 mls @ 15 mls/hr IV .Q48H [facility] PRN Reason: KVO Last Admin: 12/25/17 07:51 Dose: 15 mls/hr Bumetanide 25 mg/ (Miscellaneous Information) 100 mls @ 2 mls/hr CONT INF .Q50H [facility] PRN Reason: 0.5 MG/HR Last Admin: 12/24/17 14:51 Dose: 2 mls/hr Labetalol HCl (Trandate) 5 mg IV X1 PRN PRN Reason: SBP > 160 prior to sheath pull Stop: 12/27/17 11:51 Levothyroxine Sodium (Synthroid) 50 mcg PO MoTuWeThFr@0600 [facility] Last Admin: 12/25/17 07:37 Dose: 50 mcg Levothyroxine Sodium (Synthroid) 75 mcg PO SuSa@0600 [facility] Losartan Potassium (Cozaar) 100 mg PO DAILY [facility] Last Admin: 12/25/17 07:52 Dose: 100 mg Magnesium Hydroxide (Milk Of Magnesia) 30 ml PO DAILY PRN PRN Reason: Constipation Non-Formulary Medication (Naloxegol Oxalate [Movantik]) 12.5 mg PO DAILY [facility] Last Admin: 12/25/17 12:32 Dose: 12.5 mg Ondansetron HCl (Zofran) 4 mg IV Q8H PRN PRN PRN Reason: Nausea Pantoprazole Sodium (Protonix) 40 mg PO DAILY [facility] Last Admin: 12/25/17 09:24 Dose: 40 mg Potassium Chloride (K-Dur) 40 meq PO TIDCM [facility] Last Admin: 12/25/17 12:34 Dose: 40 meq Potassium Chloride (K-Dur) [facility] Pravastatin Sodium (Pravachol) 10 mg PO QHS [facility] Last Admin: 12/24/17 20:48 Dose: 10 mg Sodium Chloride () 5 - 30 ml IV UD PRN PRN Reason: SALINE FLUSH Last Admin: 12/25/17 10:42 Dose: 10 ml Spironolactone (Aldactone) 25 mg PO DAILY [facility] Tolterodine Tartrate (Detrol La) 2 mg PO DAILY [facility] Last Admin: 12/25/17 09:23 Dose: 2 mg Medical Necessity - Tobacco Use Smoking Status: Never smoker Assessment/Plan All Active Problems CHF (congestive heart failure) (Acute) 1. Acute on chronic CHF. EF was normal just a few years ago but now markedly reduced to about 20%. Ischemic heart disease suspected as the cause, however left heart cath showed no significant CAD. D/w Dr. Bright findings during the procedure. Essentially non ischemic cardiomyopathy. Bumex drip to be discontinued and patient restarted on IV Lasix. Appreciate input from cardiology immensely. Anticipate another 1-2 day hospital stay. 2. HTN - fairly well controlled. CUONG/ARB to optimize afterload reduction per cardiology. 3. HLD - statin. 4. GERD/Hiatal hernia - ppi. 5. Hypothyroid - clinically euthyroid. Continue Synthroid. 6. Microcytic anemia/Iron deficiency anemia. Started on Venofer IV x 3. Has had EGD and colonoscopy both in the last 1 year and negative for pathology. Suspect reduced absorption. Will screen for celiac sprue with antigliadin antibodies. To continue to f/u with GI and hematology as outpatient. 7. Mild hyponatremia - probably hypervolemic. Now normalized. Will continue to monitor lytes while on diuretics. 8. H/o DVT - INR subtherapeutic. Trend. Continue warfarin. Will have to increase dose. 9. RA - continue Plaquenil, Enbrel, Cymbalta, Lyrica. 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 10. Spinal stenosis with severe sciatica. Failed implant of spinal stimulator. Started on scheduled [place] and Neurontin and states pain is better. Will continue to see how much more comfortable we can get patient and improve her overall quality of life. Code Visit Inpatient E&M: 73266 Subs Hosp L3
[2017-12-25] MEDS: Furosemide 40 MG Tablet PO (18:02)
[2017-12-25] MEDS: Pravastatin 20 MG Tablet 10 MG PO (21:47)
[2017-12-25] MEDS: Carvedilol 3.125 MG TABLET PO (21:48)
[2017-12-26] VITALS (11 sets, daily range): BP systolic 94–110; BP diastolic 53–70; PULSE 86–99; RESP 14–16; TEMP 36.4–36.8; O2SAT 93–99
[2017-12-26] MEDS: HYDROcodone Bitartrate/Apap 5/325 Tablet PO ×4 (03:19→21:06)
[2017-12-26] MEDS: Levothyroxine 75 MCG Tablet PO (05:59)
[2017-12-26 06:32] LABS: Anion Gap 10 (5-15); BUN 11 mg/dL (7-18); BUN/Creat Ratio 13.8 RATIO (10-20); Calcium,Total 8.8 mg/dL (8.5-10.1); Chloride 96 mmol/L (98-107); EST Glomerular Filtration Rate 73 mL/min (>60); Est Glom Filt Rate - Afr Amer 88 mL/min (>60); Estimated Creatinine Clearance 40.21 ml/min; Glucose 86 mg/dL (74-106); Potassium 3.9 mmol/L (3.5-5.1); Sodium Level 137 mmol/L (136-145)
[2017-12-26] MEDS: Gabapentin 100 MG Capsule 200 MG PO (08:18)
[2017-12-26] MEDS: Folic Acid 1 MG Tablet PO (08:18)
[2017-12-26] MEDS: Carvedilol 3.125 MG TABLET PO ×2 (09:31→21:16)
[2017-12-26] MEDS: Spironolactone 25 MG Tablet PO (09:31)
[2017-12-26] MEDS: Losartan Potassium 100 MG Tablet PO (09:31)
[2017-12-26] MEDS: DULoxetine Hcl 60 MG Capsule PO (09:32)
[2017-12-26] MEDS: Pantoprazole Sodium 40 MG Tablet PO (09:32)
[2017-12-26] MEDS: Furosemide 40 MG Tablet PO ×2 (09:32→17:04)
[2017-12-26] MEDS: Hydroxychloroquine 200 MG Tablet PO ×2 (09:32→21:10)
[2017-12-26] MEDS: Tolterodine Tartrate 2 MG CAP.SA PO (09:32)
[2017-12-26] MEDS: 0.9% NaCl Peripheral Flush Adult/Peds IV ×2 (09:36→12:40)
--- NOTE | 2017-12-26 10:35 | PCM.PN.CARD ---
Subjectve: Feels better today, but still fatigued. Objective: Vital Signs Temp Pulse Resp BP Pulse Ox 98.0 F 99 14 103/62 99 12/26/17 09:27 12/26/17 09:27 12/26/17 09:27 12/26/17 09:27 12/26/17 09:27 Oxygen Flow Rate (L/min) 2 Oxygen Delivery Method Room Air Weight: 58.1 kg Body Mass Index (BMI) 26.9 Intake and Output for Last 24 Hours 12/24/17 12/25/17 12/26/17 23:59 23:59 23:59 Intake Total 1783.3 / 1783.3 883 / 883 480 / 480 Output Total 1800 / 1800 300 / 300 Balance -16.7 / -16.7 583 / 583 480 / 480 A & O X 3, in NAD. Lungs: scattered fine bibasilar crackles. CV: RRR, no m, g, rub. Ext: No edema. 12/26/17 05:32: Sodium 137, Potassium 3.9, Chloride 96 L, Carbon Dioxide 31.0, Anion Gap 10, BUN 11, Creatinine 0.80, Est GFR (MDRD) Af Amer 88, Est GFR (MDRD) Non-Af 73, BUN/Creatinine Ratio 13.8, Glucose 86, Calcium 8.8 Rhythm: EKG: ECHO: Stress Test: Cardiac Cath: PCI: CT Surgery: Holter monitor: EPS: PPM: CXR: Chest CT Scan: Medical Necessity - Tobacco Use Smoking Status: Never smoker Assessment/Plan CHF, acute on chronic, class 2 ?, nonischemic CMP, severe systolic dysfunction, angiographically normal coronaries Diuresis has reduced the wt by 14 lbs since admission. Anemia, IV Iron infusion in progress. Suggest continuation of current CHF , medical therapy. Home per attending, FU with the fiberglasser in 2-3 weeks.
[2017-12-26] MEDS: Gabapentin 300 MG Capsule PO ×2 (11:25→17:04)
[2017-12-26] MEDS: Ondansetron 4 MG/2 ML Vial IV (12:40)
[2017-12-26] MEDS: Neomycin/Polymyxin/Dexameth OINT 3.5GM OPTH.TUBE 1 APPLIC OPHTHALMIC ×2 (14:27→21:10)
--- NOTE | 2017-12-26 15:46 | PCM.PN.HOSP ---
Patient Problems: Active and Suspected Problems CHF (congestive heart failure) (Acute) Subjective: f/u for CHF exacerbation Patient seen and examined Feeling better today. Less SOB, edema in legs is less pain better Vitals/I&O's: Vital Signs Temp Pulse Resp BP Pulse Ox 98.3 F 98 16 94/61 95 12/26/17 15:25 12/26/17 15:25 12/26/17 15:25 12/26/17 15:25 12/26/17 15:25 Oxygen Flow Rate (L/min) 2 Oxygen Delivery Method Room Air Weight: 58.1 kg Body Mass Index (BMI) 26.9 Intake and Output for Last 24 Hours 12/24/17 12/25/17 12/26/17 23:59 23:59 23:59 Intake Total 1783.3 / 1783.3 883 / 883 1436 / 1436 Output Total 1800 / 1800 300 / 300 Balance -16.7 / -16.7 583 / 583 1436 / 1436 General: Alert, Oriented x3, Cooperative, No apparent distress HEENT: Atraumatic Oral: Moist Mucosa Neck: Supple, JVD, Right - mildly elevated Lungs: Rales - fine crsckles in the mid and lower zones posteriorly Cardiovascular: Regular Rhythm, Normal S1, Normal S2, No murmurs, Tachycardic - mildly tachycardic Abdomen: Soft, Non Tender, Obese Extremities: No edema, No Calf Tenderness Neurological: Neuro grossly intact Psych/Mental Status: Normal Affect, Appropriate Microbiology Past 72 Hours 12/24/17 19:01 Stool Stool Occult Blood (ANEL) - Final Laboratory Results 12/26/17 05:32: Sodium 137, Potassium 3.9, Chloride 96 L, Carbon Dioxide 31.0, Anion Gap 10, BUN 11, Creatinine 0.80, Estim Creat Clear Calc 40.21, Est GFR (MDRD) Af Amer 88, Est GFR (MDRD) Non-Af 73, BUN/Creatinine Ratio 13.8, Glucose 86, Calcium 8.8 12/26/17 05:32: Anti-Gliadin IgG Ab Pending, Anti-Gliadin IgA Ab Pending Current Medications Hydrocodone Bitart/Acetaminophen ([place] 5mg-325mg) 2 tablet PO Q6H [facility] Last Admin: 12/26/17 14:27 Dose: 2 tablet Albuterol Sulfate (Ventolin Aerosols) 2.5 mg INHALATION Q4H PRN PRN Reason: SOB &/OR WHEEZING Carvedilol (Coreg) 3.125 mg PO BID [facility] Last Admin: 12/26/17 09:31 Dose: 3.125 mg Duloxetine HCl (Cymbalta) 60 mg PO DAILY [facility] Last Admin: 12/26/17 09:32 Dose: 60 mg Etanercept (Enbrel) 25 mg SQ TuSa@1000 [facility] Fentanyl (Duragesic Patch) 75 mcg TRANSDERM. Q72H [facility] Last Admin: 12/23/17 23:41 Dose: 75 mcg Folic Acid (Folic Acid) 1 mg PO DAILYCM [facility] Last Admin: 12/26/17 08:18 Dose: 1 mg Furosemide (Lasix) 40 mg PO BID@1000,1800 [facility] Last Admin: 12/26/17 09:32 Dose: 40 mg Gabapentin (Neurontin) 300 mg PO TIDCM [facility] Last Admin: 12/26/17 11:25 Dose: 300 mg Hydroxychloroquine Sulfate (Plaquenil) 200 mg PO BID [facility] Last Admin: 12/26/17 09:32 Dose: 200 mg Iron Sucrose 300 mg/ Sodium (Chloride) 265 mls @ 177 mls/hr IV DAILY [facility] Last Admin: 12/26/17 09:36 Dose: 177 mls/hr Sodium Chloride () 1,000 mls @ 15 mls/hr IV .Q48H [facility] PRN Reason: KVO Last Admin: 12/25/17 07:51 Dose: 15 mls/hr Levothyroxine Sodium (Synthroid) 50 mcg PO MoTuWeThFr@0600 [facility] Last Admin: 12/25/17 07:37 Dose: 50 mcg Levothyroxine Sodium (Synthroid) 75 mcg PO SuSa@0600 [facility] Last Admin: 12/26/17 05:59 Dose: 75 mcg Losartan Potassium (Cozaar) 100 mg PO DAILY [facility] Last Admin: 12/26/17 09:31 Dose: 100 mg Magnesium Hydroxide (Milk Of Magnesia) 30 ml PO DAILY PRN PRN Reason: Constipation Neomycin/Polymyxin/Dexamethasone (Maxitrol) 1 applic OPHTHALMIC BID [facility] Last Admin: 12/26/17 14:27 Dose: 1 applic Non-Formulary Medication (Naloxegol Oxalate [Movantik]) 12.5 mg PO DAILY [facility] Last Admin: 12/26/17 09:32 Dose: 12.5 mg Ondansetron HCl (Zofran) 4 mg IV Q8H PRN PRN PRN Reason: Nausea Last Admin: 12/26/17 12:40 Dose: 4 mg Pantoprazole Sodium (Protonix) 40 mg PO DAILY [facility] Last Admin: 12/26/17 09:32 Dose: 40 mg Potassium Chloride (K-Dur) 20 meq PO DAILYCM [facility] Last Admin: 12/26/17 08:19 Dose: 20 meq Pravastatin Sodium (Pravachol) 10 mg PO QHS [facility] Last Admin: 18 21:47 Dose: 10 mg Sodium Chloride () 5 - 30 ml IV UD PRN PRN Reason: SALINE FLUSH Last Admin: 12/26/17 12:40 Dose: 10 ml Spironolactone (Aldactone) 25 mg PO DAILY [facility] Last Admin: 12/26/17 09:31 Dose: 25 mg Tolterodine Tartrate (Detrol La) 2 mg PO DAILY [facility] Last Admin: 12/26/17 09:32 Dose: 2 mg Medical Necessity - Tobacco Use Smoking Status: Never smoker Assessment/Plan All Active Problems CHF (congestive heart failure) (Acute) 1. Acute on chronic CHF. EF was normal just a few years ago but now markedly reduced to about 20%. Ischemic heart disease suspected as the cause, however left heart cath showed no significant CAD. D/w Dr. Bright findings during the procedure. Essentially non ischemic cardiomyopathy. Bumex drip to be discontinued and patient restarted on po Lasix now. Appears to be improving/ Appreciate input from cardiology immensely. Anticipate another 1-2 day hospital stay. 2. HTN - fairly well controlled. CUONG/ARB to optimize afterload reduction per cardiology. 3. HLD - statin. 4. GERD/Hiatal hernia - ppi. 5. Hypothyroid - clinically euthyroid. Continue Synthroid. 6. Microcytic anemia/Iron deficiency anemia. Started on Venofer IV x 3. Has had EGD and colonoscopy both in the last 1 year and negative for pathology. Suspect reduced absorption. Will screen for celiac sprue with antigliadin antibodies. To continue to f/u with GI and hematology as outpatient. 7. Mild hyponatremia - probably hypervolemic. Now normalized. Will continue to monitor lytes while on diuretics. 8. H/o DVT - Continue warfarin. 9. RA - continue Plaquenil, Enbrel, Cymbalta, Lyrica. 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 10. Spinal stenosis with severe sciatica. Failed implant of spinal stimulator. Started on scheduled [place] and Neurontin and states pain is better. Will continue to see how much more comfortable we can get patient and improve her overall quality of life. Code Visit Inpatient E&M: 17336 Subs Hosp L2
[2017-12-26] MEDS: Pravastatin 20 MG Tablet 10 MG PO (21:08)
--- NOTE | 2017-12-26 22:33 | NURSING ---
FENTANYL PATCH WASTED DOWN TOILET WITH MARIELENA GARAY WITNESS.
[2017-12-27] VITALS (8 sets, daily range): BP systolic 90–116; BP diastolic 53–76; PULSE 73–103; RESP 18; TEMP 36.6–37.1; O2SAT 94–98
[2017-12-27] MEDS: HYDROcodone Bitartrate/Apap 5/325 Tablet PO ×3 (01:24→13:10)
[2017-12-27] MEDS: Levothyroxine 75 MCG Tablet PO (05:36)
[2017-12-27 06:15] LABS: International Normalized Ratio 1.3; Prothrombin Time (Protime)PT. 15.9 SECONDS (11.7-14.9)
[2017-12-27] MEDS: Gabapentin 300 MG Capsule PO ×2 (08:05→12:36)
[2017-12-27] MEDS: Folic Acid 1 MG Tablet PO (08:06)
[2017-12-27] MEDS: Neomycin/Polymyxin/Dexameth OINT 3.5GM OPTH.TUBE 1 APPLIC OPHTHALMIC (10:15)
[2017-12-27] MEDS: Losartan Potassium 100 MG Tablet PO (10:15)
[2017-12-27] MEDS: Furosemide 40 MG Tablet PO (10:15)
[2017-12-27] MEDS: Hydroxychloroquine 200 MG Tablet PO (10:16)
[2017-12-27] MEDS: Pantoprazole Sodium 40 MG Tablet PO (10:16)
[2017-12-27] MEDS: Tolterodine Tartrate 2 MG CAP.SA PO (10:16)
[2017-12-27] MEDS: Spironolactone 25 MG Tablet PO (10:17)
[2017-12-27] MEDS: Carvedilol 3.125 MG TABLET PO (10:17)
[2017-12-27] MEDS: DULoxetine Hcl 60 MG Capsule PO (10:17)
--- NOTE | 2017-12-27 10:26 | PCM.DC ---
- Discharge Diagnoses Current Active Problems: Current Active and Chronic Problems HTN (hypertension) (Chronic) HLD (hyperlipidemia) (Chronic) CHF (congestive heart failure) (Acute) Hypothyroid (Chronic) GERD (gastroesophageal reflux disease) (Chronic) Rheumatoid arthritis (Chronic) You will use the following diet at home:: No restrictions, Regular Your food should be the consistency of: Regular Discharge Activity: Return to Normal Activity, No Restrictions Allergies/Adverse Reactions: Allergies bee venom protein (honey bee) Allergy (Verified 12/23/17 15:00) Anaphylaxis meperidine HCl [From Demerol] Allergy (Verified 12/23/17 09:56) Anaphylaxis Penicillins Allergy (Verified 12/23/17 14:59) Unknown aspirin Adverse Reaction (Verified 12/23/17 14:59) bad headaches and ringing in my ears NSAIDS (Non-Steroidal Anti-Inflamma Adverse Reaction (Verified 12/23/17 15:00) nausea and I passed out Medications to take at Discharge Calcium (Elemental) [Caltrate-600] 600 mg PO DAILY 10/26/13 Cholecalciferol (Vitamin D3) [Vitamin D] 2,000 unit PO DAILY 10/26/13 Epinephrine [Epi Pen] 0.3 mg IM X1 10/26/13 Etanercept [Enbrel] 25 mg SQ TUSA 10/26/13 Hydroxychloroquine [Plaquenil] 200 mg PO BID 10/26/13 Multivit-Min/FA/Lycopene/Lut [Centrum Silver Tablet] 1 each PO DAILY 10/26/13 Warfarin [Coumadin] 2 mg PO DAILY 10/26/13 Albuterol IH (ProAir) [Proair Hfa] 1 - 2 puff INHALATION Q4H PRN PRN 12/23/17 Biotin 5 mg PO DAILY 12/23/17 Duloxetine HCl 60 mg PO DAILY 12/23/17 Fentanyl 75 mcg TRANSDERM. Q72H 12/23/17 Folic Acid 1 mg PO DAILY 12/23/17 Lansoprazole 30 mg PO DAILY 12/23/17 Levothyroxine [Synthroid] 50 mcg PO MOTUWETHFR 12/23/17 Levothyroxine [Synthroid] 75 mcg PO SUSA 12/23/17 Naloxegol Oxalate [Movantik] 12.5 mg PO DAILY 12/23/17 Olmesartan Medoxomil [Benicar] 40 mg PO DAILY 12/23/17 Oxybutynin Chloride [Ditropan Xl] 5 mg PO DAILY 12/23/17 Potassium Chloride [Klor-Con M20] 20 meq PO DAILY 12/23/17 Pravastatin Sodium 10 mg PO QHS 12/23/17 Carvedilol [Coreg (Beta [place])] 3.125 mg PO BID #60 tab 12/27/17 Furosemide [Lasix] 40 mg PO BID@1000,1800 #60 tab 12/27/17 Gabapentin [Neurontin] 300 mg PO TIDCM #90 cap 12/27/17 Hydrocodone Bitart/Apap 5-325 [[place] 5/325] 2 tablet PO Q6H #56 tablet 12/27/17 Spironolactone [Aldactone] 25 mg PO DAILY #30 tab 12/27/17 The following prescriptions were given: Furosemide [Lasix] 40 mg PO BID@1000,1800 #60 tab Spironolactone [Aldactone] 25 mg PO DAILY #30 tab Carvedilol [Coreg (Beta [place])] 3.125 mg PO BID #60 tab Hydrocodone Bitart/Apap 5-325 [[place] 5/325] 2 tablet PO Q6H #56 tablet Gabapentin [Neurontin] 300 mg PO TIDCM #90 cap Primary Care Physician: [facility] Doctor,Out of [NON-STAFF] - Test Results: Test results from this visit will be discussed in further detail at your follow-up appointment, if applicable. Please Follow Up With: Vicente Bright MD When: 2-3 weeks. Already scheduled staged Proposed Discharge Date: 12/27/17
--- NOTE | 2017-12-27 10:30 | PCM.DC.SUM ---
Discharge Date and Diagnosis - Problem List Patient Problems: Active and Suspected Problems CHF (congestive heart failure) (Acute) Date of Admission: 12/23/17 Date of Discharge: 12/27/17 - Primary Discharge Diagnosis Active and Suspected Problems CHF (congestive heart failure) (Acute) - Secondary Discharge Diagnosis Chronic Problems HTN (hypertension) (Chronic) HLD (hyperlipidemia) (Chronic) Hypothyroid (Chronic) GERD (gastroesophageal reflux disease) (Chronic) Rheumatoid arthritis (Chronic) Hospital Course and Treatment Operations: None Procedures: 2-D Echocardiogram, Cardiac catheterization Summary of Care Provided: The patient is a 82 year old F admitted on account of acute CHF. Echocardiogram done showed diffuse systolic dysfunction with an ejection fraction of about 20%. Compared to about 5 years ago this was a marked worsening in EF prompting the suspicion of possible ischemic heart disease. Cardiology was consulted and patient went on to have a left heart catheterization which interestingly showed fairly normal coronary arteries. Based on this, patient was diagnosed essentially with non ischemic dilated cardiomyopathy. Medical treatment was optimized. Today patient is doing a lot better. Lower extremity edema is much improved and dyspnea is improved as well. Patient has spinal stenosis and sciatica and so pain medicine regimen was adjusted. Pain control much is improved and she will be going home on a new opioid regimen. Patient will follow up with cardiac rehab as an outpatient. Instructed to have BMP done in 1 week to monitor electrolytes and renal function. [] Discharge Diet: 2000 mg Sodium Diet Discharge Activity: Return to Normal Activity, No Restrictions Home Medications: Medications to take at Discharge Calcium (Elemental) [Caltrate-600] 600 mg PO DAILY 10/26/13 Cholecalciferol (Vitamin D3) [Vitamin D] 2,000 unit PO DAILY 10/26/13 Epinephrine [Epi Pen] 0.3 mg IM X1 10/26/13 Etanercept [Enbrel] 25 mg SQ TUSA 10/26/13 Hydroxychloroquine [Plaquenil] 200 mg PO BID 10/26/13 Multivit-Min/FA/Lycopene/Lut [Centrum Silver Tablet] 1 each PO DAILY 10/26/13 Warfarin [Coumadin] 2 mg PO DAILY 10/26/13 Albuterol IH (ProAir) [Proair Hfa] 1 - 2 puff INHALATION Q4H PRN PRN 12/23/17 Biotin 5 mg PO DAILY 12/23/17 Duloxetine HCl 60 mg PO DAILY 12/23/17 Fentanyl 75 mcg TRANSDERM. Q72H 12/23/17 Folic Acid 1 mg PO DAILY 12/23/17 Lansoprazole 30 mg PO DAILY 12/23/17 Levothyroxine [Synthroid] 50 mcg PO MOTUWETHFR 12/23/17 Levothyroxine [Synthroid] 75 mcg PO SUSA 12/23/17 Naloxegol Oxalate [Movantik] 12.5 mg PO DAILY 12/23/17 Olmesartan Medoxomil [Benicar] 40 mg PO DAILY 12/23/17 Oxybutynin Chloride [Ditropan Xl] 5 mg PO DAILY 12/23/17 Potassium Chloride [Klor-Con M20] 20 meq PO DAILY 12/23/17 Pravastatin Sodium 10 mg PO QHS 12/23/17 Carvedilol [Coreg (Beta Ainsley)] 3.125 mg PO BID #60 tab 12/27/17 Furosemide [Lasix] 40 mg PO BID@1000,1800 #60 tab 12/27/17 Gabapentin [Neurontin] 300 mg PO TIDCM #90 cap 12/27/17 Hydrocodone Bitart/Apap 5-325 [[place] 5/325] 2 tablet PO Q6H #56 tablet 12/27/17 Spironolactone [Aldactone] 25 mg PO DAILY #30 tab 12/27/17 Following Prescrptions Were Given to Patient: Furosemide [Lasix] 40 mg PO BID@1000,1800 #60 tab Spironolactone [Aldactone] 25 mg PO DAILY #30 tab Carvedilol [Coreg (Beta [place])] 3.125 mg PO BID #60 tab Hydrocodone Bitart/Apap 5-325 [[place] 5/325] 2 tablet PO Q6H #56 tablet Gabapentin [Neurontin] 300 mg PO TIDCM #90 cap Primary Care Physician: [facility] Doctor,Out of [NON-STAFF] - Please follow up with your Primary Care Physician in: 1-2 weeks Additional Instructions: BMP in 1 week Disposition: Home Minutes spent on discharge:: 30 Patient Condition:: Good Medical Necessity - Tobacco Use Smoking Status: Never smoker Meaningful Use Info Meaningful Use Diagnoses (Choose all that apply): CHF - CHF CUONG/ARB ordered at discharge?: Yes Documented LVEF (%): 20 Code Visit Inpatient E&M: 81135 Disch Hosp
[2017-12-30 12:25] LABS: Deamidated Gliadin IgA 5 units (0-19); Deamidated Gliadin IgG 2 units (0-19)
== END 2017-12-27 13:28 | disposition home or self-care (01) | DRG 287 ==
LOC: ED 11:27 → PCU 13:31
PROVIDERS: Admitting Provider Family Medicine; Emergency Provider Emergency Medicine; Visit Provider Internal Medicine
DX: I11.0 Hypertensive heart disease with heart failure (principal); E87.1 Hypo-osmolality and hyponatremia; I50.23 Acute on chronic systolic (congestive) heart failure; I42.0 Dilated cardiomyopathy; E78.5 Hyperlipidemia, unspecified; D50.9 Iron deficiency anemia, unspecified; K21.9 Gastro-esophageal reflux disease without esophagitis; E03.9 Hypothyroidism, unspecified; Z86.718 Personal history of other venous thrombosis and embolism; M48.00 Spinal stenosis, site unspecified; M54.30 Sciatica, unspecified side; M06.9 Rheumatoid arthritis, unspecified; Z79.01 Long term (current) use of anticoagulants
CPT/HCPCS: 36415; 51702; 71045; 71260; 74177; 80048; 80061; 81001; 82274; 82728; 83516; 83540; 83550; 83735; 83880; 84443; 84484; 85025; 85610; 85730; 93005; 93306; 93458; 97110; 97162; 97166; 97530; 97535; 97802; 99152; 99153; 99284; J1756; J7030; J7040; J7050; Q9967; A4216; C1769; C1894; J1940; J2405

== ENCOUNTER → 2018-01-04 04:00 | Outpatient (REF) | payer MEDICARE, OTHER, SELFPAY ==
[2018-01-04 08:51] LABS: Anion Gap 11 (5-15); BUN 13 mg/dL (7-18); BUN/Creat Ratio 16.4 RATIO (10-20); Calcium,Total 9.3 mg/dL (8.5-10.1); Chloride 97 mmol/L (98-107); Creatinine, Serum 0.79 mg/dL (0.55-1.02); EST Glomerular Filtration Rate 73 mL/min (>60); Est Glom Filt Rate - Afr Amer 89 mL/min (>60); Glucose 105 mg/dL (74-106); Potassium 4.2 mmol/L (3.5-5.1); Sodium Level 136 mmol/L (136-145)
== END ==
DX: I50.9 Heart failure, unspecified (principal)
CPT/HCPCS: 36415; 80048

== ENCOUNTER → 2018-02-02 14:09 | Outpatient (CLI) | payer MEDICARE, OTHER, SELFPAY ==
[2018-02-02 14:44] LABS: Absolute Lymphocyte Count 1.84 X10^3/ul (0.83-4.51); Absolute Neutrophil Count 3.9 X10^3/uL (2.0-7.7); Basophil# 0.05 X10^3/uL; Basophil% 0.8 % (0-1); Eosinophil# 0.31 X10^3/uL; Eosinophils% 4.7 % (0-5); Hematocrit 43.9 % (37-47); Hemoglobin 13.7 g/dl (12.0-15.0); Lymphocyte # 1.84 X10^3/ul (4.0); Lymphocyte % 27.9 % (19-41); Mean Corp Hgb Conc 31.2 g/gl (32-36); Mean Corpuscular Volume 83.5 fL (81-99); Mean Platelet Vol. 10.8 fl (6.2-12.0); Monocyte# 0.54 X10^3/uL; Monocyte% 8.2 % (0-10); Neutrophil # 3.85 X10^3/uL (2.7-7.7); Neutrophil % 58.2 % (47-70); Platelet Count 241 K/mm3 (150-450); Red Blood Count 5.26 M/mm3 (4.2-5.4); White Blood Count 6.6 K/mm3 (4.4-11.0)
[2018-02-02 14:46] LABS: Differential Indicated SCAN CRITERIA MET; POSITIVE COUNT NO; POSITIVE DIFFERENTIAL NO; POSITIVE MORPHOLOGY YES
[2018-02-02 14:47] LABS: International Normalized Ratio 1.3; Prothrombin Time (Protime)PT. 16.5 SECONDS (11.7-14.9)
[2018-02-02 15:10] LABS: Anisocytosis 1+
== END ==
PROVIDERS: Referring Provider Nurse Practitioner Family; Visit Provider Nurse Practitioner Family
DX: E78.00 Pure hypercholesterolemia, unspecified (principal); R53.83 Other fatigue; Z86.718 Personal history of other venous thrombosis and embolism; Z79.01 Long term (current) use of anticoagulants
CPT/HCPCS: 36415; 85025; 85610

== ENCOUNTER → 2018-03-10 13:15 | Outpatient (CLI) | payer MEDICARE, OTHER, SELFPAY ==
[2018-03-10 15:20] LABS: International Normalized Ratio 1.6; Prothrombin Time (Protime)PT. 18.7 SECONDS (11.7-14.9)
[2018-03-10 15:25] LABS: Anion Gap 6 (5-15); BUN 30 mg/dL (7-18); BUN/Creat Ratio 28.8 RATIO (10-20); Calcium,Total 8.9 mg/dL (8.5-10.1); Chloride 96 mmol/L (98-107); Creatinine, Serum 1.04 mg/dL (0.55-1.02); EST Glomerular Filtration Rate 54 mL/min (>60); Est Glom Filt Rate - Afr Amer 65 mL/min (>60); Glucose 88 mg/dL (74-106); Potassium 4.6 mmol/L (3.5-5.1); Sodium Level 130 mmol/L (136-145)
== END ==
DX: I82.409 Acute embolism and thrombosis of unspecified deep veins of unspecified lower extremity (principal); E87.1 Hypo-osmolality and hyponatremia
CPT/HCPCS: 36415; 80048; 85610